=== PATIENT | female | born 1955 | race Caucasian/White ===

== ENCOUNTER → 2016-08-15 | Outpatient (CLI) | payer BC ==
--- NOTE | 2016-08-15 16:47 | MR ---
EXAMINATION: MR of the head without contrast. TECHNIQUE: Multiplanar and multisequence imaging of the head without intravenous contrast. Diffusion weighted sequences were performed. HISTORY: There is degenerative skin. FINDINGS: The cerebral hemispheres and deep nuclei are without hemorrhage, mass, edema or atrophy. No evidence for restricted diffusion. The pituitary gland is heterogeneous and prominent in size measuring 1.3 cm in the craniocaudal dimension. The infundibulum appears midline. No extraaxial collections or hemorrhage. The ventricular system is of normal size and configuration without hydrocephalus. Brainstem and cerebellum are without hemorrhage, mass, edema, gliosis or atrophy. The carotid basila r artery flow voids are intact. The otomastoid airspaces are clear. No internal auditory canal or cerebellopontine angle masses. T he paranasal sinuses are clear. Craniocervical junction is unremarkable. IMPRESSION: 1. Heterogeneous mildly enlarged pituitary gland measuring 1.3 cm in the craniocaudal dimension. An underlying neoplastic process is not excluded. 2. No acute intracranial findings.
== END ==
LOC: MW.MRI 14:10
PROVIDERS: ATTEND Family Medicine
DX: R20.0 Anesthesia of skin (principal); R20.2 Paresthesia of skin; R53.83 Other fatigue; M79.1 Myalgia; R94.131 Abnormal electromyogram [EMG]; R47.1 Dysarthria and anarthria
CPT/HCPCS: 70551; 70551-26

== ENCOUNTER → 2016-08-17 | Outpatient (CLI) | payer BC | LOC: MW.CHFP 11:20 | PROVIDERS: ATTEND Physician Assistant | DX: E23.7 Disorder of pituitary gland, unspecified (principal) | CPT/HCPCS: 36415; 82533; 83001; 83002; 84146; 84305; 84439 ==

== ENCOUNTER → 2016-08-18 | Outpatient (CLI) | payer BC | LOC: MW.CHFP 08:27 | PROVIDERS: ATTEND Physician Assistant | DX: E23.7 Disorder of pituitary gland, unspecified (principal) | CPT/HCPCS: 36415; 82024 ==

== ENCOUNTER → 2016-09-12 | Outpatient (CLI) | payer BC ==
[~2016-09-12] MED LIST: Gadobutrol 7.5 mMOL/7.5 ML SDV IVPUSH STA
--- NOTE | 2016-09-13 09:56 | MR ---
EXAMINATION: MRI cervical spine with and without contrast HISTORY: Reticular uropathy COMPARISON: None TECHNIQUE: Multiplanar and multisequence images obtained through the cervical spine before and follo wing the administration of Gadavist. FINDINGS: There is reversal of the normal cervical lordosis centered at C4-C5. The vertebral body he ights are grossly maintained. Mild endplate signal changes and enhancement are noted at C4-C5 otherw ise no abnormal bone marrow signal. The cervical spinal cord signal is normal. The prevertebral soft tissues appear normal. There is a hemangioma within the T6 vertebral body. C2-C3: Unremarkable. C3-C4: Unremarkable. C4-C5: Small diffuse disc bulge without significant spinal canal stenosis. Mild bilateral neural for aminal stenosis. C5-C6: Moderate diffuse disc bulge with mild underlying spinal canal stenosis. Moderate left and mil d right neural foraminal stenosis. C6-C7: Small diffuse disc bulge with minimal spinal canal stenosis. Moderate left and mild right vika ral foraminal stenosis. C7-T1: Unremarkable. IMPRESSION: 1. Multilevel degenerative disc disease noted within the cervical spine most prominent from C4 to C7 with individual details above.
== END ==
LOC: MW.MRI 07:49
PROVIDERS: ATTEND Psychiatry & Neurology Neuromuscular Medicine
DX: M54.12 Radiculopathy, cervical region (principal); M62.89 Other specified disorders of muscle; E27.40 Unspecified adrenocortical insufficiency; H53.2 Diplopia; M50.321 Other cervical disc degeneration at C4-C5 level
CPT/HCPCS: 36415; 72156; 82024; 82533; 83519; 83520; A9585

== ENCOUNTER 2017-02-10 08:55 | Day surgery (SDC) | payer BC ==
[~2017-02-10 08:55] MED LIST changes: -Gadobutrol 7.5 mMOL/7.5 ML SDV IVPUSH STA; +Lidocaine 2% 5 ML SDV ONE; +Midazolam 1 MG/ML 2 ML SDV ONE; +Ondansetron 4 MG/2 ML SDV ONE; +Propofol 200 MG/20 ML SDV ONE; +fentaNYL 100 MCG/2 ML SDV ONE
[2017-02-10] MEDS ORDERED: Clindamycin Phosphate in D5W 600 MG in Premix Bag 1 BAG IV ONE ×2 (09:00)
[2017-02-10] MEDS ORDERED: Acetaminophen/HYDROcodone 325-5 MG Tab PO PRN (09:00)
[2017-02-10] MEDS ORDERED: Bupivacaine 0.25%/EPINEPHrine 1:200,000 10 ML SDV INJECT ONE (09:00)
[2017-02-10] MEDS ORDERED: Lactated Ringers 1,000 ML IV SCH (09:00)
--- NOTE | 2017-02-10 09:29 | PCM.PREANE ---
Preanesthetic Assessment - Anesthesia/Transfusion/Family Hx Anesthesia History: Prior Anesthesia Without Reaction Family History of Anesthesia Reaction: No Transfusion History: No Prior Transfusion(s) Intubation History: Unknown - Review of Systems General: No Symptoms Pulmonary: No Symptoms Cardiovascular: No Symptoms Gastrointestinal: No Symptoms Neurological: No Symptoms Other: Reports: None - Physical Assessment O2 Sat by Pulse Oximetry: 96 Respiratory Rate: 16 Vital Signs: Last Vital Signs Temp 36 C 02/10/17 09:02 Pulse 55 L 02/10/17 09:02 Resp 16 02/10/17 09:02 BP 137/75 02/10/17 09:02 Pulse Ox 96 02/10/17 09:02 Height: 1.55 m Weight: 76.204 kg ASA Class: 3 Mental Status: Alert & Oriented x3 Airway Class: Mallampati = 2 Dentition: Reports: Normal Dentition (couple of loose teeth bottom front) Thyro-Mental Finger Breadths: 3 Mouth Opening Finger Breadths: 3 ROM/Head Extension: Full Lungs: Clear to Auscultation, Normal Respiratory Effort Cardiovascular: Regular Rate, Regular Rhythm - Allergies Allergies/Adverse Reactions: Allergies Allergy/AdvReac Type Severity Reaction Status Date / Time Penicillins Allergy Anaphylactic Verified 02/03/17 13:55 Shock - Blood Blood Available: No - Anesthesia Plan Pre-Op Medication Ordered: None Beta Cortney: Propranolol Med Last Dose Date: 02/10/17 Med Last Dose Time: 08:00 - Acknowledgements Anesthesia Type Planned: General Anesthesia Pt an Appropriate Candidate for the Planned Anesthesia: Yes Alternatives and Risks of Anesthesia Discussed w Pt/Guardian: Yes Pt/Guardian Understands and Agrees with Anesthesia Plan: Yes PreAnesthesia Questionnaire HEENT History: Reports: Cataract Other HEENT History: wears glasses Cardiovascular History: Reports: Hypertension Respiratory History: Reports: Asthma Gastrointestinal History: Reports: GERD Genitourinary History: Reports: None ENDLESS BED DRUM SANDER History: Reports: Musculoskeletal History: Reports: Arthritis, Fracture Other Musculoskeletal History: hx of fx bilateral hips, pelvis, sacrum Neurological History: Reports: Other (See Below) Other Neuro History: 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 Insomnia. Fatigue. Psychiatric History: Reports: None Endocrine/Metabolic History: Reports: Hypothyroidism, Obesity/BMI 30+, Other ( See Below) Other Endocrine/Metabolic History: has a pituitary tumor, has Gee's thyroiditis, h/o elevated glucose levels- now ok Hematologic History: Reports: None Immunologic History: Reports: None Oncologic (Cancer) History: Reports: None Dermatologic History: Reports: None - Past Surgical History Head Surgeries/Procedures: Reports: None HEENT Surgical History: Reports: Tonsillectomy GI Surgical History: Reports: Appendectomy, Cholecystectomy Female Surgical History: Reports: Tubal Ligation Musculoskeletal Surgical History: Reports: Other (See Below) Other Musculoskeletal Surgeries/Procedures:: right thumb CMC arthroplasty Other Surgical History Comment: CTR - SUBSTANCE USE Smoking Status *Q: Former Smoker (quit last year) Tobacco Use Within Last Twelve Months: No Recreational Drug Use History: No - HOME MEDS Home Medications: Home Meds Levothyroxine [Synthroid] 88 mcg PO DAILY 12/29/15 [History] Multivitamin [Multivitamins] 1 tab PO DAILY 12/29/15 [History] Ranitidine HCl [Ranitidine] 150 mg PO DAILY PRN 12/29/15 [History] Zolpidem Tartrate [Ambien] 5 mg PO BEDTIME PRN 12/29/15 [History] Albuterol [Ventolin HFA] 2 puff INH Q4H PRN 02/03/17 [History] Fluticasone Propionate [Flovent HFA 110 MCG] 2 puff INH BID 02/03/17 [History] Propranolol HCl [Inderal LA] 320 mg PO DAILY 02/03/17 [History] - CURRENT (IN HOUSE) MEDS Current Meds: Current Medications Hydrocodone Bitart/Acetaminophen ([place] 325-5 Mg) 1 tab PO Q4H PRN PRN Reason: Pain Lactated Ringer's (Ringers, Lactated) 1,000 mls @ 125 mls/hr IV ASDIRECTED [facility] Last Admin: 02/10/17 09:08 Dose: 125 mls/hr Discontinued Medications Bupivacaine HCl/Epinephrine Bitart (Marcaine 0.25%/Epinephrine 1:200,000) 20 ml INJECT ONETIME ONE Stop: 02/10/17 09:01 Fentanyl (Sublimaze) Confirm Administered Dose 100 mcg .ROUTE .STK-MED ONE Stop: 02/10/17 08:41 Clindamycin Phosphate 600 mg/ (Premix) 50 mls @ 150 mls/hr IV ONETIME ONE Stop: 02/10/17 09:19 Last Admin: 02/10/17 09:24 Dose: 150 mls/hr Lidocaine (Xylocaine-Mpf 2%) Confirm Administered Dose 5 ml .ROUTE .STK-MED ONE Stop: 02/10/17 08:41 Midazolam HCl (Versed 1 Mg/Ml) Confirm Administered Dose 2 mg .ROUTE .STK-MED ONE Stop: 02/10/17 08:41 Ondansetron HCl (Zofran) Confirm Administered Dose 4 mg .ROUTE .STK-MED ONE Stop: 02/10/17 08:41 Propofol (Diprivan 20 Ml) Confirm Administered Dose 200 mg .ROUTE .STK-MED ONE Stop: 02/10/17 08:41
[2017-02-10] MEDS ORDERED: ePHEDrine 50 MG/ML SDV ONE (09:56)
[2017-02-10] MEDS ORDERED: diphenhydrAMINE 50 MG/ML SDV ONE (09:58)
[2017-02-10] MEDS: fentaNYL 100 MCG/2 ML SDV IVPUSH PRN ×2 (12:05→12:10)
--- NOTE | 2017-02-10 12:31 | PCM.POSTAN ---
POST ANESTHESIA ASSESSMENT - MENTAL STATUS Mental Status: Alert, Oriented - RESPIRATORY Respiratory Status: Respiratory Rate WNL, Airway Patent, O2 Saturation Stable - CARDIOVASCULAR CV Status: Pulse Rate WNL - GASTROINTESTINAL GI Status: No Symptoms - PAIN Pain Score: 4 - POST OP HYDRATION Hydration Status: Adequate & Stable - OBSERVATIONS Free Text/Narrative:: no anesthesia problems
[2017-02-10 14:06] VITALS: BP 124/70
--- NOTE | 2017-02-16 14:36 | PCM.OPNOTE ---
- General Post-Op/Procedure Note Date of Surgery/Procedure: 02/10/17 Operative Procedure(s): left thumb trapeziectomy with ligament interposition reconstruction Pre Op Diagnosis: left thumb severe cmc arthritis Post-Op Diagnosis: Same Anesthesia Technique: General LMA, Local Primary Surgeon: Ira Norris Pillowcase Cleaner: Danna Niño Complications: None Condition: Good
--- NOTE | 2017-02-16 21:35 | OR ---
SURGEON: DEVORA ENGRON MD DATE OF PROCEDURE: 02/10/2017 PREOPERATIVE DIAGNOSIS: Left thumb severe carpometacarpal arthritis. POSTOPERATIVE DIAGNOSIS: Left thumb severe carpometacarpal arthritis. PROCEDURES PERFORMED: Left thumb trapeziectomy with ligament interposition and reconstruction. COMPUTER SYSTEMS ANALYST: POP Mckeon. ANESTHESIA: General LMA with local anesthesia. INDICATIONS: Ms. Huang is a 61-year-old female with left thumb CMC arthritis that was quite severe. She has failed conservative management and continues to have problems. On evaluation, she does have significant arthritis, and would like to proceed with the CMC arthroplasty as she had done on the opposite side. Given her success on the right side, we will proceed with the left. Risks and benefits were discussed with her including, but not limited to bleeding, infection, damage to underlying or overlying structures, possible need for future interventions, and possible scarring. PROCEDURE IN DETAIL: After informed consent was obtained and placed on the chart, the patient was brought to operating theater and laid in supine position. After adequate general LMA anesthesia was obtained, the area was prepped and draped, and a time- out was completed to confirm side and site. Attention was then paid to exsanguination of the arm, and the tourniquet was inflated to 200 mmHg. Attention was then paid to the left thumb, and a small curvilinear incision was made over junction of the dorsal and volar aspects of the thumb metacarpal and CMC area. Dissection was carried through the skin with 15-blade, and then through the subcutaneous tissues using spreading to protect any superficial branches of the superficial radial nerve. Once this was completed, the bone itself was encountered, and dissection was carried through the bone using Bovie electrocautery and dissection circumferentially around the trapezium until removal. This was removed piecemeal due to the significant arthritic nature of the joint. Once this was removed, fluoroscopy was used to confirm the complete excision of the trapezium, and then attention was paid to the left thumb metacarpal base. This was significantly arthritic, and the arthritic portion was easily removed using a 5-mm flat saw. Once this was removed, a small 2.5-mm bur was used to pass through the medullary canal of the metacarpal through the dorsal aspect of the bone in order to pass the tendon for re-suspension and reconstruction of the volar beak ligament. Once this was completed, attention was then paid to dissection of the flexor carpi radialis tendon. A small transverse incision was made in the mid forearm, and dissection was carried down until the flexor carpi radialis tendon was located. Attention was then paid to a more proximal incision in order to perform the dissection from the muscle. Once this was completed, the tendon was pulled to allow passing into the site of the thumb surgery. However, the thumb due to significant arthritis of the trapezium, the ligament was no longer attached. This was then taken as a free graft placed into the trapeziectomy site and sutured together as an anchovy. A portion of the tendon was then brought through the hole made in the base of the metacarpal and tied upon itself. The other end of the anchovy was then sutured into the base of the wound. This allowed appropriate suspension of the thumb and also appropriate cushion. WOUND CLOSURE: Once this was completed, the area was copiously irrigated, and the joint capsule was closed using deep Monocryl stitches, as well as the periosteum over the metacarpal base area. Once this was completed, attention was then paid to the skin with deep 4-0 Monocryls and a running 4-0 subcuticular for the skin. The area was copiously irrigated, and meticulous hemostasis was obtained prior to closure. Once this was completed, the wound was then dressed with Steri-Strips, fluffs, and a Kerlix gauze dressing and a short-arm thumb spica splint. The forearm skin was closed using deep 4-0 Monocryl stitches and a running 4-0 subcuticular for the skin as well. The 4-0 FiberWire stitches were used to secure the anchovy to itself for suspension and to the base of the wound. POSTOPERATIVE CONDITION: Once this was completed and the wounds had been closed and a splint was placed, the patient was taken to PACU in stable condition after local anesthesia was infiltrated into the area. She tolerated the procedure well. COUNT RESULTS: All counts and needles were correct at the end of the case. Post-procedure films were taken for Radiology. HEGGTHE / [id number] /[id number]
== END 2017-02-10 13:51 | disposition home or self-care (01) ==
LOC: MW.SDS 08:55
PROVIDERS: ATTEND Plastic Surgery
DX: M18.12 Unilateral primary osteoarthritis of first carpometacarpal joint, left hand (principal); G56.02 Carpal tunnel syndrome, left upper limb; J45.909 Unspecified asthma, uncomplicated; G25.0 Essential tremor; E06.3 Autoimmune thyroiditis; I10 Essential (primary) hypertension; K21.9 Gastro-esophageal reflux disease without esophagitis; E66.9 Obesity, unspecified; E03.9 Hypothyroidism, unspecified; Z88.0 Allergy status to penicillin; Z79.899 Other long term (current) drug therapy; Z98.51 Tubal ligation status; Z90.49 Acquired absence of other specified parts of digestive tract; Z90.89 Acquired absence of other organs; Z98.890 Other specified postprocedural states; Z87.891 Personal history of nicotine dependence; Z68.31 Body mass index [BMI] 31.0-31.9, adult
CPT/HCPCS: 25447; 26480; 88304; 88311; A9270; J1200; J2250; J2405; J3010; J7120; 01810; J2704